=== PATIENT | male | born 1975 | race Caucasian/White ===

== ENCOUNTER 2018-07-04 05:43 | Emergency (ER) | payer OTHER ==
[~2018-07-04] VITALS: Ht 175.3 cm; Wt 81.8 kg
[2018-07-04 06:58] LABS: INFLUENZA A AMPLIFICATION POSITIVE (NEGATIVE); INFLUENZA B AMPLIFICATION NEGATIVE (NEGATIVE)
[2018-07-04 07:22] VITALS: BP 104/65
== END 2018-07-04 07:26 | disposition home or self-care (01) ==
LOC: M ED 05:43
DX: J09.X2 Influenza due to identified novel influenza A virus with other respiratory manifestations (principal)

== ENCOUNTER → 2019-11-30 | Outpatient (CLI) | payer OTHER ==
--- NOTE | 2020-01-14 07:26 | SLEEPCENT ---
DATE: 11/30/2019 ORDERED BY: Gabriella Paige Nocturnal polysomnography was performed for evaluation of sleep physiology. Seven hours and 46 minutes of data were reviewed. There were 268 minutes of sleep identified. Sleep latency was prolonged at 44 minutes. REM latency was prolonged at 134 minutes. Sleep architecture was fair with two short REM cycles. Fragmentation was noted. Overall sleep efficiency was 58.1%. The patient's electrocardiogram showed a sinus rhythm with an average heart rate 50 beats per minutes. EEG showed normal waveforms for awake and sleep. There were only 21 respiratory events identified of ten seconds in duration or greater for an apnea-hypopnea index of 4.7. Snoring was, however, noted with some activity in the limb leads. Limb movement arousal index was 0.9. IMPRESSION: Borderline normal nocturnal polysomnography with snoring. RECOMMENDATIONS: The frequency of respiratory events was not sufficient to establish the diagnosis of obstructive sleep apnea syndrome. It was; however, quite close and should the patients sleep symptoms persist, retesting has been shown more sensitive to identify mild obstructive sleep apnea disease. /htsru edited: 02/27/2020 1102 aliya EVANS
== END ==
LOC: M SLEEP 20:00
PROVIDERS: ATTEND Nurse Practitioner Family
DX: G47.9 Sleep disorder, unspecified (principal)

== ENCOUNTER → 2020-04-07 | Outpatient (CLI) | payer SELFPAY | LOC: M LABSMTC 18:28 | PROVIDERS: ATTEND Pediatrics | DX: Z20.828 Contact with and (suspected) exposure to other viral communicable diseases (principal) ==

== ENCOUNTER → 2020-06-28 | Outpatient (CLI) | payer OTHER ==
--- NOTE | 2020-06-28 17:55 | REP ---
INDICATION: PAIN LEFT FINGER COMPARISON: None. TECHNIQUE: Four views left 2nd digit. FINDINGS: There is possible tiny nondisplaced avulsion fracture of indeterminate age at the anterior base of the middle phalanx. There is mild soft tissue swelling. Joint spaces are unremarkable. IMPRESSION: Possible tiny nondisplaced avulsion fracture of indeterminate age at the anterior base of the middle phalanx. <Electronically signed by Dinesh Alcantara > 06/28/20 [id number]
== END ==
LOC: M RAD 17:21
PROVIDERS: ATTEND Physician Assistant
DX: M79.645 Pain in left finger(s) (principal)

== ENCOUNTER 2022-08-23 07:11 | Day surgery (SDC) | payer OTHER ==
[~2022-08-23] VITALS: Ht 175.3 cm; Wt 81.6 kg
[~2022-08-23 07:11] MED LIST: NS 1,000 ML IV ONE
[2022-08-23] MEDS ORDERED: LIDOCAINE 2% 100MG/5ML SDV (FOR ANES.) As Ordered ONE (08:31)
[2022-08-23] MEDS ORDERED: propofoL 500 MG/50 ML VIAL As Ordered ONE (08:31)
[2022-08-23 09:10] VITALS: BP 102/56
== END 2022-08-23 09:10 | disposition home or self-care (01) ==
LOC: M OPP 07:11
PROVIDERS: ATTEND Internal Medicine Gastroenterology
DX: Z12.11 Encounter for screening for malignant neoplasm of colon (principal); Z87.891 Personal history of nicotine dependence

== ENCOUNTER 2023-10-16 12:37 | Observation (INO) | payer OTHER ==
[~2023-10-16] VITALS: Ht 175.3 cm; Wt 87.6 kg
[2023-10-16 13:43] LABS: BASO % 0.1 % (0.0-1.0); EOS % 0.3 % (0.0-3.0); HEMOGLOBIN 13.1 g/dl (13.5-17.5); LYMPH # 1.3 10^3/uL (1.5-5.0); LYMPH % 7.9 % (24.0-44.0); MEAN CORPUSCULAR HEMOGLOBIN 31.3 pg (27.0-33.0); MEAN CORPUSCULAR HGB CONC 35.4 g/dl (32.0-36.5); MEAN CORPUSCULAR VOLUME 88.3 fl (80.0-96.0); MONO # 0.7 10^3/uL (0.0-0.8); MONO % 4.5 % (2.0-8.0); NEUTROPHILS # 13.7 10^3/uL (1.5-8.5); NEUTROPHILS % 86.9 % (36.0-66.0); PLATELET COUNT, AUTOMATED 190 10^3/uL (150-450); RED BLOOD COUNT 4.19 10^6/uL (4.30-6.10); WHITE BLOOD COUNT 15.8 10^3/uL (4.0-10.0)
[2023-10-16] MEDS ORDERED: ISOVUE-370 76% 100ML VIAL As Ordered ONE (14:06)
[2023-10-16 14:07] LABS: CK-MB VALUE MASS < 1.0 NG/ML (<3.6)
[2023-10-16 14:09] LABS: BLOOD UREA NITROGEN 21 MG/DL (9-23); CALCIUM LEVEL 9.3 MG/DL (8.5-10.1); CARBON DIOXIDE LEVEL 30 MMOL/L (20-31); CHLORIDE LEVEL 110 MMOL/L (98-107); CPK CREATINE PHOSPHOKINASE 89 U/L (46-171); CREATININE FOR GFR 0.87 MG/DL (0.70-1.30); GLOMERULAR FILTRATION RATE > 60.0 (>60); GLUCOSE, FASTING 96 MG/DL (60-100); MB/CK RELATIVE INDEX 1.12 (< OR =4); POTASSIUM SERUM 4.3 MMOL/L (3.5-5.1); SODIUM LEVEL 144 MMOL/L (136-145)
[2023-10-16 14:11] LABS: THYROID STIMULATING HORMONE 1.796 uIU/ML (0.55-4.78)
[2023-10-16] MEDS: NS 1,000 ML IV SCH ×2 (14:29→22:49)
[2023-10-16 15:07] LABS: CK-MB VALUE MASS < 1.0 NG/ML (<3.6)
[2023-10-16 15:08] LABS: CPK CREATINE PHOSPHOKINASE 91 U/L (46-171); MB/CK RELATIVE INDEX 1.09 (< OR =4)
[2023-10-16] MEDS ORDERED: HOME MED LIST COMPLETE! XX SCH (17:00)
[2023-10-16] MEDS ORDERED: ONDANSETRON 4MG ORAL DISINTEGRATING TAB PO PRN (17:55)
[2023-10-16 18:37] LABS: CK-MB VALUE MASS < 1.0 NG/ML (<3.6)
[2023-10-16 18:39] LABS: CPK CREATINE PHOSPHOKINASE 93 U/L (46-171); MB/CK RELATIVE INDEX 1.07 (< OR =4)
[2023-10-16] MEDS: ACETAMINOPHEN 500 MG TAB PO ONE (20:23)
[2023-10-16 22:50] VITALS: BP 118/63; TEMP 97.5; O2SAT 98
[2023-10-16] MEDS: HEPARIN SOD (PORCINE) 5000UNITS/ML 1ML VIAL/SYRINGE SC SCH (22:57)
[2023-10-17 03:25] VITALS: BP 101/55; TEMP 97.8; O2SAT 97
[2023-10-17 06:46] LABS: HEMOGLOBIN 12.2 g/dl (13.5-17.5); MEAN CORPUSCULAR HEMOGLOBIN 31.1 pg (27.0-33.0); MEAN CORPUSCULAR HGB CONC 34.9 g/dl (32.0-36.5); MEAN CORPUSCULAR VOLUME 89.3 fl (80.0-96.0); PLATELET COUNT, AUTOMATED 177 10^3/uL (150-450); RED BLOOD COUNT 3.92 10^6/uL (4.30-6.10); WHITE BLOOD COUNT 8.9 10^3/uL (4.0-10.0)
[2023-10-17 06:53] LABS: HEMOGLOBIN A1c 4.9 % (4.0-6.0)
[2023-10-17 07:05] LABS: ALBUMIN 3.3 G/DL (3.2-5.2); ALKALINE PHOSPHATASE 63 U/L (46-116); ALT/SGPT 10 U/L (7.0-40); AST/SGOT < 8 U/L (<34); BILIRUBIN,TOTAL 0.7 MG/DL (0.3-1.2); BLOOD UREA NITROGEN 15 MG/DL (9-23); CALCIUM LEVEL 8.7 MG/DL (8.5-10.1); CARBON DIOXIDE LEVEL 28 MMOL/L (20-31); CHLORIDE LEVEL 111 MMOL/L (98-107); CHOLESTEROL LEVEL 137 MG/DL (<200); CHOLESTEROL RISK RATIO 2.99 (<5); CREATININE FOR GFR 0.71 MG/DL (0.70-1.30); GLOMERULAR FILTRATION RATE > 60.0 (>60); GLUCOSE, FASTING 95 MG/DL (60-100); HDL CHOLESTEROL 45.7 MG/DL (>40); LDL CHOLESTEROL 79.1 MG/DL (<100); MAGNESIUM LEVEL 1.8 MG/DL (1.8-2.4); NON-HDL-C 91.3 MG/DL; POTASSIUM SERUM 3.9 MMOL/L (3.5-5.1); SODIUM LEVEL 142 MMOL/L (136-145); TOTAL PROTEIN 5.7 G/DL (5.7-8.2); TRIGLYCERIDES LEVEL 61 MG/DL (<150)
[2023-10-17 08:17] VITALS: BP 118/63; TEMP 97.9; O2SAT 96
== END 2023-10-17 12:31 | disposition home or self-care (01) ==
LOC: M ED 12:37 → EDBD 12:37 → M ED INP 12:38 → M PCU 22:40
PROVIDERS: ADMIT Internal Medicine; ATTEND Internal Medicine
DX: R55 Syncope and collapse (principal); R53.83 Other fatigue; R53.1 Weakness; R41.0 Disorientation, unspecified; R11.11 Vomiting without nausea; R79.89 Other specified abnormal findings of blood chemistry; R47.81 Slurred speech; R26.0 Ataxic gait; Z82.5 Family history of asthma and other chronic lower respiratory diseases; Z83.79 Family history of other diseases of the digestive system
CPT/HCPCS: 36415; 70450; 70496; 70498; 70544; 70551; 71046; 80047; 80048; 80053; 80061; 82550; 82553; 83036; 83735; 84443; 84484; 85025; 85027; 93005; 93041; 93306; 94760; 96360; 96361; 96372; 99285; G0378; Q9967

== ENCOUNTER 2024-06-25 06:58 | Emergency (ER) | payer OTHER ==
[~2024-06-25] VITALS: Ht 175.3 cm; Wt 87.6 kg
[2024-06-25 07:02] VITALS: TEMP 98.6; O2SAT 98
[2024-06-25 07:09] VITALS: BP 104/62
[2024-06-25 11:29] LABS: KETONE, URINE MANUAL REFLEX NEGATIVE (NEGATIVE); NITRITE, URINE MANUAL RFX NEGATIVE (NEGATIVE); PROTEIN, URINE MANUAL REFLEX 2+ mg/dL (NEGATIVE); UROBILINOGEN, UA MANUAL REFLEX NORMAL (NORMAL)
[2024-06-25 11:50] LABS: HYALINE CAST, URINE RFX NONE SEEN /lpf (0-1); MICROSCOPIC EXAM RFX PERFORMED; RBC, URINE MAN REFLEX 0-1 /hpf (0-3); SQUAMOUS EPITHELIAL URINE RFX NONE SEEN /hpf (SMALL AMT)
== END 2024-06-25 10:29 | disposition left against medical advice (07) ==
LOC: M ED 06:58
DX: Z53.21 Procedure and treatment not carried out due to patient leaving prior to being seen by health care provider (principal)

== ENCOUNTER → 2025-04-12 | Outpatient (CLI) | payer OTHER | LOC: M SLEEP 20:00 | PROVIDERS: ATTEND Nurse Practitioner Family | DX: R06.83 Snoring (principal) ==